=== PATIENT | male | born 1985 | race African-American/Black ===

== ENCOUNTER 2023-01-16 13:47 | Inpatient (IN) | payer OTHER ==
[~2023-01-16] VITALS: Ht 172.7 cm; Wt 72.7 kg
[2023-01-16] MEDS ORDERED: PERTUSS(ACELL),DIPH,TET VAC/PF 0.5 ML SYRINGE IM. ONE (15:15)
[2023-01-16] MEDS ORDERED: LIDOCAINE 1% 10 ML VIAL SQ ONE (15:15)
[2023-01-16] MEDS ORDERED: BACITRACIN 0.9 GM PACKET OINTMENT TP ONE (15:15)
[2023-01-16] MEDS ORDERED: CloNIDine HCL 0.1 MG TABLET PO PRN (16:15)
[2023-01-16] MEDS ORDERED: ONDANSETRON HCL 4 MG TABLET PO PRN (16:15)
[2023-01-16] MEDS ORDERED: ACETAMINOPHEN 325 MG TABLET PO PRN (16:15)
[2023-01-16] MEDS ORDERED: MAG HYDROX/AL HYDROX/SIMETH ES 30 ML SUSPENSION UDCUP PO PRN (16:15)
[2023-01-16] MEDS ORDERED: MAGNESIUM HYDROXIDE SUSPENSION 30 ML UDCUP PO PRN (16:15)
[2023-01-16] MEDS ORDERED: IBUPROFEN 400 MG TABLET PO PRN (16:15)
[2023-01-16] MEDS ORDERED: GuaiFENesin/D-METHORPHAN [SUGAR-FREE] 200-20MG/10 ML SYRUP UDCUP PO PRN (16:15)
[2023-01-16] MEDS ORDERED: PETROLATUM,WHITE 28 GM JELLY TP PRN (16:15)
[2023-01-16] MEDS ORDERED: NICOTINE 14 MG/24 HOUR PATCH TD PRN (16:15)
[2023-01-16] MEDS ORDERED: LOPERAMIDE HCL 2 MG CAPSULE PO PRN (16:15)
[2023-01-16] MEDS ORDERED: ALBUTEROL SULFATE HFA 90 MCG/PUFF 8 GM INHALER IH PRN (16:15)
[2023-01-16] MEDS ORDERED: DOCUSATE SODIUM 100 MG CAPSULE PO PRN (16:15)
[2023-01-16 16:24] LABS: ANION GAP 6 mmol/L (8-16); BASOPHILS % (AUTO) 0.8 % (0.0-2.0); CALCIUM, TOTAL 9.6 mg/dL (8.8-10.5); CARBON DIOXIDE 31 mmol/L (22-29); CHLORIDE 103 mmol/L (98-107); CREATININE 1.07 mg/dL (0.60-1.30); EOSINOPHILS % (AUTO) 0.6 % (1.0-6.0); GLOMERULAR FILTR. RATE CALC > 60 mL/min (>60); GLUCOSE,RANDOM 83 mg/dL (70-110); HEMATOCRIT 44.9 % (41-53); HEMOGLOBIN 14.4 g/dL (13.5-17.5); LYMPHOCYTES % (AUTO) 29.6 % (22.0-44.0); MEAN CORPUSCULAR HEMOGLOBIN 27.1 pg (26.0-34.0); MEAN CORPUSCULAR VOLUME 85 fL (80-100); MONOCYTES # (AUTO) 0.3 K/uL (0.1-1.0); MONOCYTES % (AUTO) 7.4 % (2.0-9.0); NEUTROPHILS # (AUTO) 2.1 K/uL (1.8-7.7); NEUTROPHILS % (AUTO) 61.6 % (40.0-70.0); PLATELET COUNT (AUTO) 147 K/uL (150-450); POTASSIUM 4.2 mmol/L (3.5-5.1); RED BLOOD CELL COUNT(AUTO) 5.31 MIL/uL (4.50-5.90); RED CELL DISTRIBUTION WIDTH 15.3 % (11.5-14.5); SODIUM SERUM 140 mmol/L (136-145); UREA NITROGEN, BLOOD 15 mg/dL (7-18); WHITE BLOOD COUNT (AUTO) 3.4 K/uL (4.5-11.0)
[2023-01-16 16:30] LABS: COVID AG,FIA SOURCE NASOPHARYNGEAL
[2023-01-16 16:31] LABS: ALANINE AMINOTRANSFERASE 13 U/L (12-78); ALBUMIN 4.5 g/dL (3.4-5.0); ALKALINE PHOSPHATASE 58 U/L (46-116); ASPARTATE AMINOTRANSFERASE 18 U/L (15-37); BILIRUBIN,TOTAL 0.7 mg/dL (0.1-1.0); TOTAL PROTEIN, SERUM 7.8 g/dL (6.4-8.2)
[2023-01-16 16:33] LABS: ALCOHOL, BLOOD (SERUM) < 3 mg/dL (0-10)
[2023-01-16 16:50] LABS: SARS-COV2 (COVID) ANTIGEN,FIA Negative (Negative)
[2023-01-16 17:02] LABS: PH,URINE DRUG SCREEN 5.5 (5.0-8.0)
[2023-01-16 17:08] LABS: ALCOHOL, URINE DRUG SCREEN NEGATIVE (NEGATIVE); AMPHET/METH SCREEN,URINE NEGATIVE (NEGATIVE); BARBITURATE SCREEN, URINE NEGATIVE (NEGATIVE); BENZODIAZEPINES SCREEN,URINE NEGATIVE (NEGATIVE); CANNABINOID SCREEN,URINE NEGATIVE (NEGATIVE); COCAINE SCREEN,URINE NEGATIVE (NEGATIVE); METHADONE SCREEN, URINE NEGATIVE (NEGATIVE); OPIATE SCREEN,URINE NEGATIVE (NEGATIVE); PHENCYCLIDINE SCREEN,URINE NEGATIVE (NEGATIVE)
[2023-01-16 20:56] VITALS: BP 128/72; PULSE 80; RESP 20; TEMP 98
[2023-01-16 21:18] VITALS: BP 108/64; PULSE 58; RESP 20; TEMP 98.2
[2023-01-17 05:29] VITALS: BP 119/75; PULSE 79; RESP 20; TEMP 97.9
[2023-01-17 08:07] VITALS: BP 107/66; PULSE 55; RESP 20; TEMP 97.9
[2023-01-17 17:26] VITALS: BP 128/73; PULSE 70; RESP 19; TEMP 98.7
[2023-01-17 19:42] VITALS: BP 113/61; PULSE 68; RESP 18; TEMP 98.9
[2023-01-17] MEDS: DIVALPROEX SODIUM 500 MG DR TABLET PO SCH (20:57)
[2023-01-17] MEDS: MIRTAZAPINE 30 MG TABLET PO SCH (20:57)
[2023-01-17] MEDS: PERPHENAZINE 8 MG TABLET PO SCH (20:57)
[2023-01-17] MEDS: BENZTROPINE MESYLATE 1 MG TABLET PO SCH (20:57)
[2023-01-18 04:53] VITALS: BP 108/70; PULSE 68; RESP 18; TEMP 98.4
[2023-01-18] MEDS: BENZTROPINE MESYLATE 1 MG TABLET PO SCH ×2 (07:55→22:44)
[2023-01-18] MEDS: DIVALPROEX SODIUM 500 MG DR TABLET PO SCH ×2 (07:55→22:44)
[2023-01-18] MEDS: PERPHENAZINE 8 MG TABLET PO SCH ×2 (07:55→22:44)
[2023-01-18 08:44] VITALS: BP 101/68; PULSE 68; RESP 18; TEMP 98.6
[2023-01-18 17:11] VITALS: BP 114/67; PULSE 69; RESP 18; TEMP 99
[2023-01-18 19:58] VITALS: BP 118/75; PULSE 63; RESP 20; TEMP 97.5
[2023-01-18] MEDS: MIRTAZAPINE 30 MG TABLET PO SCH (22:44)
[2023-01-19 04:40] VITALS: BP 106/66; PULSE 56; RESP 20; TEMP 98.4
[2023-01-19 07:06] LABS: HIV 1-2 SCREEN 4TH GEN W/RFLX Non Reactive (Non Reactive)
[2023-01-19 08:00] VITALS: BP 114/66; PULSE 65; RESP 20; TEMP 98.3
[2023-01-19] MEDS: BENZTROPINE MESYLATE 1 MG TABLET PO SCH ×2 (08:51→21:47)
[2023-01-19] MEDS: PERPHENAZINE 8 MG TABLET PO SCH ×2 (08:51→21:47)
[2023-01-19] MEDS: DIVALPROEX SODIUM 500 MG DR TABLET PO SCH ×2 (08:53→21:49)
[2023-01-19 20:08] VITALS: BP 129/76; PULSE 80; RESP 20; TEMP 98.4
[2023-01-19] MEDS ORDERED: TEMAZEPAM 7.5 MG CAPSULE PO SCH (21:00)
[2023-01-19] MEDS: MIRTAZAPINE 30 MG TABLET PO SCH (21:47)
[2023-01-20] MEDS: BENZTROPINE MESYLATE 1 MG TABLET PO SCH ×2 (08:04→21:00)
[2023-01-20] MEDS: PERPHENAZINE 8 MG TABLET PO SCH ×2 (08:04→21:00)
[2023-01-20] MEDS: DIVALPROEX SODIUM 500 MG DR TABLET PO SCH ×2 (08:04→21:00)
[2023-01-20 08:19] VITALS: BP 125/72; PULSE 59; RESP 20; TEMP 98
[2023-01-20] MEDS ORDERED: CYCLOBENZAPRINE HCL 10 MG TABLET PO PRN (11:15)
[2023-01-20 20:00] VITALS: BP 120/73; PULSE 75; RESP 16; TEMP 98.6
[2023-01-20] MEDS: MIRTAZAPINE 30 MG TABLET PO SCH (21:00)
[2023-01-21 07:00] VITALS: BP 131/83; PULSE 76; RESP 18; TEMP 98.3
[2023-01-21] MEDS: BENZTROPINE MESYLATE 1 MG TABLET PO SCH (09:01)
[2023-01-21] MEDS: PERPHENAZINE 8 MG TABLET PO SCH (09:01)
[2023-01-21] MEDS: DIVALPROEX SODIUM 500 MG DR TABLET PO SCH (09:01)
[2023-01-21] MEDS ORDERED: BENZ1TAB84 PO (11:41)
[2023-01-21] MEDS ORDERED: TRIL8 PO (11:42)
[2023-01-21] MEDS ORDERED: DIVA-112 PO (11:42)
[2023-01-21] MEDS ORDERED: CYCL-448 PO (11:44)
== END 2023-01-21 17:11 | DRG 580 ==
LOC: EMS 14:09 → 6S 18:19
PROVIDERS: ADMIT Internal Medicine; ATTEND Internal Medicine
PROC: 0JQJ0ZZ Repair Right Hand Subcutaneous Tissue and Fascia, Open Approach (ICD-10-PCS; principal; 2023-01-16)
PROC: 3E0234Z Introduction of Serum, Toxoid and Vaccine into Muscle, Percutaneous Approach (ICD-10-PCS; 2023-01-16)
DX: S61.512A Laceration without foreign body of left wrist, initial encounter (principal); F20.0 Paranoid schizophrenia; R45.851 Suicidal ideations; S61.511A Laceration without foreign body of right wrist, initial encounter; X78.9XXA Intentional self-harm by unspecified sharp object, initial encounter; F31.9 Bipolar disorder, unspecified; E78.00 Pure hypercholesterolemia, unspecified; R51.9 Headache, unspecified; Z20.822 Contact with and (suspected) exposure to COVID-19; Y33.XXXA Other specified events, undetermined intent, initial encounter; Y93.89 Activity, other specified; Y92.89 Other specified places as the place of occurrence of the external cause; Y99.8 Other external cause status; Z91.018 Allergy to other foods; Z88.8 Allergy status to other drugs, medicaments and biological substances
CPT/HCPCS: 70551; 80053; 80307; 83036; 85025; 87389; 90715; 93306; 99285; G0480

== ENCOUNTER 2023-01-22 22:03 | Inpatient (IN) | payer OTHER ==
[~2023-01-22] VITALS: Ht 172.7 cm; Wt 68.2 kg
[~2023-01-22 22:03] MED LIST: BENZ1TAB84 PO; CYCL-448 PO; DIVA-112 PO; TRIL8 PO
[2023-01-23 03:39] LABS: BASOPHILS % (AUTO) 1.7 % (0.0-2.0); EOSINOPHILS % (AUTO) 3.5 % (1.0-6.0); HEMATOCRIT 44.1 % (41-53); HEMOGLOBIN 14.8 g/dL (13.5-17.5); LYMPHOCYTES # (AUTO) 1.5 K/uL (1.0-4.8); LYMPHOCYTES % (AUTO) 38.6 % (22.0-44.0); MEAN CORPUSCULAR HEMOGLOBIN 28.1 pg (26.0-34.0); MEAN CORPUSCULAR HGB CONC 33.5 G/dL (31.0-37.0); MEAN CORPUSCULAR VOLUME 84 fL (80-100); MONOCYTES # (AUTO) 0.4 K/uL (0.1-1.0); MONOCYTES % (AUTO) 9.3 % (2.0-9.0); NEUTROPHILS # (AUTO) 1.8 K/uL (1.8-7.7); NEUTROPHILS % (AUTO) 46.9 % (40.0-70.0); PLATELET COUNT (AUTO) 181 K/uL (150-450); RED BLOOD CELL COUNT(AUTO) 5.26 MIL/uL (4.50-5.90); RED CELL DISTRIBUTION WIDTH 15.4 % (11.5-14.5); WHITE BLOOD COUNT (AUTO) 3.8 K/uL (4.5-11.0)
[2023-01-23 03:43] LABS: ANION GAP 9 mmol/L (8-16); CALCIUM, TOTAL 9.6 mg/dL (8.8-10.5); CARBON DIOXIDE 30 mmol/L (22-29); CHLORIDE 101 mmol/L (98-107); CREATININE 0.99 mg/dL (0.60-1.30); GLOMERULAR FILTR. RATE CALC > 60 mL/min (>60); GLUCOSE,RANDOM 121 mg/dL (70-110); POTASSIUM 3.7 mmol/L (3.5-5.1); SODIUM SERUM 140 mmol/L (136-145); UREA NITROGEN, BLOOD 26 mg/dL (7-18)
[2023-01-23 03:50] LABS: ALANINE AMINOTRANSFERASE 21 U/L (12-78); ALBUMIN 4.1 g/dL (3.4-5.0); ALKALINE PHOSPHATASE 62 U/L (46-116); ASPARTATE AMINOTRANSFERASE 23 U/L (15-37); BILIRUBIN,TOTAL 0.4 mg/dL (0.1-1.0); TOTAL PROTEIN, SERUM 7.8 g/dL (6.4-8.2)
[2023-01-23 03:51] LABS: TROPONIN I-HIGH SENSITIVITY 5 ng/L (<76)
[2023-01-23 03:55] LABS: ALCOHOL, BLOOD (SERUM) < 3 mg/dL (0-10)
[2023-01-23] MEDS ORDERED: ONDANSETRON HCL 4 MG/2 ML VIAL IVP PRN (04:30)
[2023-01-23] MEDS ORDERED: ACETAMINOPHEN 325 MG TABLET PO PRN ×2 (04:30→18:00)
[2023-01-23] MEDS ORDERED: 0.9% SODIUM CHLORIDE 10 ML SYRINGE IVP PRN (04:30)
[2023-01-23 16:16] VITALS: BP 126/68; PULSE 69; RESP 20; TEMP 98.9
[2023-01-23] MEDS ORDERED: IBUPROFEN 400 MG TABLET PO PRN (18:00)
[2023-01-23 19:20] VITALS: BP 117/68; PULSE 64; RESP 18; TEMP 98.3
[2023-01-23] MEDS: CYCLOBENZAPRINE HCL 10 MG TABLET PO SCH (19:43)
[2023-01-23] MEDS: BENZTROPINE MESYLATE 1 MG TABLET PO SCH (19:43)
[2023-01-23] MEDS: DIVALPROEX SODIUM 500 MG DR TABLET PO SCH (19:43)
[2023-01-24 03:15] VITALS: BP 119/73; PULSE 60; RESP 20; TEMP 97.6
[2023-01-24] MEDS: DIVALPROEX SODIUM 500 MG DR TABLET PO SCH ×2 (08:46→20:13)
[2023-01-24] MEDS: BENZTROPINE MESYLATE 1 MG TABLET PO SCH ×2 (08:46→20:12)
[2023-01-24] MEDS: PERPHENAZINE 8 MG TABLET PO SCH ×2 (12:57→20:13)
[2023-01-24 17:09] VITALS: BP 125/84; PULSE 80; RESP 20; TEMP 99
[2023-01-24] MEDS: CYCLOBENZAPRINE HCL 10 MG TABLET PO SCH (20:13)
[2023-01-24 20:38] VITALS: BP 133/73; PULSE 74; RESP 20; TEMP 98.3
[2023-01-24] MEDS ORDERED: MIRTAZAPINE 30 MG TABLET PO SCH (21:00)
[2023-01-25 05:23] VITALS: BP 109/61; PULSE 63; RESP 18; TEMP 98.4
[2023-01-25] MEDS: PERPHENAZINE 8 MG TABLET PO SCH (08:02)
[2023-01-25] MEDS: BENZTROPINE MESYLATE 1 MG TABLET PO SCH (08:02)
[2023-01-25] MEDS: DIVALPROEX SODIUM 500 MG DR TABLET PO SCH (08:02)
[2023-01-25 08:23] VITALS: BP 110/77; PULSE 62; RESP 19; TEMP 98.1
== END 2023-01-25 17:15 | DRG 605 ==
LOC: EMS 22:03 → 6S 01-23 04:26
PROVIDERS: ADMIT Hospitalist; ATTEND Hospitalist
DX: S61.511A Laceration without foreign body of right wrist, initial encounter (principal); R45.851 Suicidal ideations; F25.1 Schizoaffective disorder, depressive type; F45.21 Hypochondriasis; C61 Malignant neoplasm of prostate; E78.00 Pure hypercholesterolemia, unspecified; F31.9 Bipolar disorder, unspecified; S61.512A Laceration without foreign body of left wrist, initial encounter; Y93.89 Activity, other specified; X78.9XXA Intentional self-harm by unspecified sharp object, initial encounter; Y92.89 Other specified places as the place of occurrence of the external cause; Y99.8 Other external cause status; Z88.8 Allergy status to other drugs, medicaments and biological substances; Z91.018 Allergy to other foods
CPT/HCPCS: 80053; 83880; 84153; 84443; 84484; 85025; 86038; 86225; 93005; 99285; G0480